=== PATIENT | female | born 1975 | race Caucasian/White ===

== ENCOUNTER 2018-03-24 22:55 | Emergency (ER) | payer BC, OTHER ==
[~2018-03-24] VITALS: Ht 170.2 cm; Wt 165.0 kg
[2018-03-24 23:09] VITALS: BP 147/75; PULSE 82; RESP 20; Ht 170.2 cm; Wt 165.0 kg
[2018-03-25] MEDS ORDERED: SODI30SP2 NS (02:21)
[2018-03-25] MEDS ORDERED: D-ME118S24 PO (02:21)
--- NOTE | 2018-03-25 02:29 | ERD ---
ER Documentation Chief Complaint Chief Complaint cough w/ chest pain and body aches tonight HPI 43-year-old female presents for cough, runny nose times 1 day. There is associated fever, chills, body aches, sore throat. He states that the fever subjective. She also notes that she has mild chest discomfort with cough. She does have history of asthma and hypertension. Cough is noted to be dry. No other modifying factors noted. ROS All systems reviewed and are negative except as per history of present illness. Medications Home Meds Active Scripts Sodium Chloride (Saline Nasal [place]) 30 Ml [place], 30 ML NS BID PRN for NASAL CONGESTION, #1 BOTTLE Prov:YARELY WEST DO 03/25/18 D-Methorphan Hb/P-Epd HCl/Bpm (Yfhpxsbivh-Xqyxjwxmulc-Li Syr) 118 Ml Syrup, 5 ML PO Q4H PRN for COUGH for 7 Days, #1 BOTTLE Prov:YARELY WEST DO 03/25/18 Allergies Allergies: Coded Allergies: morphine (Verified Allergy, Unknown, 03/24/18) Physical Exam Vitals Vital Signs Date Temp Pulse Resp B/P (MAP) Pulse Ox O2 O2 Flow FiO2 Time Delivery Rate 03/24/18 98.8 82 20 147/75 98 23:09 (99) Physical Exam Const: No acute distress Head: Atraumatic Eyes: Normal Conjunctiva ENT: Normal External Ears, Nose and Mouth. Tonsillar exudate or swelling noted. Neck: Full range of motion. No meningismus. Resp: Clear to auscultation bilaterally Cardio: Regular rate and rhythm, no murmurs Abd: Soft, non tender, non distended. Normal bowel sounds Skin: No petechiae or rashes Back: No midline or flank tenderness Ext: No cyanosis, or edema, no lower extremity pain to palpation. Neur: Awake and alert Psych: Normal Mood and Affect Procedures/MDM Medical Decision Making: Differential diagnosis includes but not limited to upper respiratory infection, pneumonia, sepsis. Patient appeared well on physical examination, nontoxic appearing. Lungs were clear to auscultation bilaterally. There is low suspicion for pneumonia, sepsis. Patient likely has an upper respiratory infection, likely viral. Discussed symptomatic treatment with patient's mother who agrees with plan. Given the patient has some chest discomfort EKG was done which was normal sinus rhythm no ST or T wave changes noted. Low suspicion for ACS. Patient given prescription for normal saline nasal spray, Bromfed. Advised to continue taking Advil at home. Patient advised to follow up with PCP in 1-2 days. Patient advised to return to ED for new or worsening symptoms. Patient stable on discharge from the ED. Disclaimer: Inadvertent spelling and grammatical errors are likely due to EHR/dictation software use and do not reflect on the overall quality of patient care. Also, please note that the electronic time recorded on this note does not necessarily reflect the actual time of the patient encounter. Departure Diagnosis: Primary Impression: URI (upper respiratory infection) URI type: unspecified URI Qualified Codes: J06.9 - Acute upper respiratory infection, unspecified Condition: Fair Patient Instructions: Preventing Common Respiratory Infections Referrals: [facility] YOU HAVE RECEIVED A MEDICAL SCREENING EXAM AND THE RESULTS INDICATE THAT YOU DO NOT HAVE A CONDITION THAT REQUIRES URGENT TREATMENT IN THE EMERGENCY DEPARTMENT. FURTHER EVALUATION AND TREATMENT OF YOUR CONDITION CAN WAIT UNTIL YOU ARE SEEN IN YOUR DOCTORS OFFICE WITHIN THE NEXT 1-2 DAYS. IT IS YOUR RESPONSIBILITY TO MAKE AN APPOINTMENT FOR FOLOW-UP CARE. IF YOU HAVE A PRIMARY DOCTOR --you should call your primary doctor and schedule an appointment IF YOU DO NOT HAVE A PRIMARY DOCTOR YOU CAN CALL OUR PHYSICIAN REFERRAL HOTLINE AT IF YOU CAN NOT AFFORD TO SEE A PHYSICIAN YOU CAN CHOSE FROM THE FOLLOWING [facility] [address] [facility]. [facility] [address] [facility] [facility] [address] [facility] [facility] [address] [facility] [facility] [address] [facility]. [facility]. [address] Additional Instructions: Call your primary care doctor TOMORROW for an appointment during the next 1-2 days.See the doctor sooner or return here if your condition worsens before your appointment time. YARELY WEST DO Mar 25, 2018 02:29
== END 2018-03-25 02:54 | disposition home or self-care (01) ==
LOC: FTE 22:55
DX: J06.9 Acute upper respiratory infection, unspecified (principal); I10 Essential (primary) hypertension; J45.909 Unspecified asthma, uncomplicated
CPT/HCPCS: 93005